=== PATIENT | female | born 1990 | race Hispanic/Latino ===

== ENCOUNTER 2017-08-26 13:00 | Inpatient (IN) | payer MEDICAID ==
[~2017-08-26] VITALS: Ht 175.3 cm; Wt 91.3 kg
[2017-08-26] MEDS ORDERED: SODIUM CHLORIDE 0.9% 1000ML 1,000 ML IV STA ×2 (13:05→15:58)
[2017-08-26] MEDS ORDERED: ONDANSETRON HCL INJ 2 MG/ML VIAL IV STA (13:05)
[2017-08-26] MEDS ORDERED: MORPHINE SULFATE INJ 4 MG/ML INJ IV STA (13:05)
[2017-08-26] MEDS ORDERED: MORPHINE SULFATE 2 MG/ML SYR ONE (13:25)
[2017-08-26 13:38] LABS: CLARITY,URINE HAZY (CLEAR); COLOR,URINE YELLOW (YELLOW)
[2017-08-26 13:39] LABS: BILIRUBIN,URINE NEGATIVE (NEGATIVE); KETONES,URINE NEGATIVE (NEGATIVE); LEUKOCYTE ESTERASE ,URINE NEGATIVE (NEGATIVE); NITRITE,URINE NEGATIVE (NEGATIVE); PROTEIN,URINE DIPSTICK TRACE (NEGATIVE); URINE UROBILINOGEN 1 mg/dL (0.2 - 1)
[2017-08-26 13:49] LABS: PREGNANCY TEST, URINE NEGATIVE (NEGATIVE)
[2017-08-26 13:56] LABS: BASOPHILS % 0.3 % (0.0-1.0); EOSINOPHILS % 0.3 % (0.0-6.0); HEMATOCRIT 40.7 % (34.2-44.1); LYMPHOCYTES # (AUTO) 1.1 (1.0-3.2); MEAN CORPUSCULAR HEMOGLOBIN 28.4 pg (28-32); MEAN CORPUSCULAR HGB CONC 34.4 g/dL (31-35); MEAN CORPUSCULAR VOLUME 82.6 fL (81-99); MONOCYTES # (AUTO) 0.5 (0.2-0.8); MONOCYTES % 5.3 % (4.4-11.3); NEUTROPHILS # (AUTO) 7.4 (2.1-6.9); PLATELET COUNT 261 x10e3/uL (140-360); RED BLOOD COUNT 4.93 x10e6/uL (3.6-5.1)
[2017-08-26 13:58] LABS: BACTERIA,URINE MANY /HPF; EPITHELIAL CELLS,URINE MANY /LPF; RBC,URINE 0-5 /HPF (0-5); WBC,URINE (MAN) 0-5 /HPF (0-5)
[2017-08-26] MEDS ORDERED: KETOROLAC TROMETHAMINE 30 MG/ML VIAL IV STA (14:02)
[2017-08-26 14:19] LABS: ALANINE AMINOTRANSFERASE 582 IU/L (0-55); ALBUMIN 4.5 g/dL (3.5-5.0); ALBUMIN/GLOBULIN RATIO 1.4 (0.8-2.0); ALKALINE PHOSPHATASE 115 IU/L (40-150); ANION GAP 14.4 mmol/L (8-16); BLOOD UREA NITROGEN 11 mg/dL (7-26); BUN/CREATININE RATIO 13 (6-25); CALCIUM 9.5 mg/dL (8.4-10.2); CARBON DIOXIDE 22 mmol/L (22-29); CHLORIDE 105 mmol/L (98-107); CREATININE, SERUM 0.83 mg/dL (0.57-1.11); EST GLOMERULAR FILTRATION RATE > 60 ML/MIN (60-); GLUCOSE 122 mg/dL (74-118); POTASSIUM 3.4 mmol/L (3.5-5.1); SODIUM 138 mmol/L (136-145)
[2017-08-26] MEDS ORDERED: HYDROMORPHONE 1MG/1ML INJ IV ONE (14:30)
--- NOTE | 2017-08-26 14:51 | Diagnostic Imaging Report ---
EXAM: CT Abdomen and Pelvis WITHOUT contrast INDICATION: Stomach and back pain. Kidney stone. COMPARISON: None. TECHNIQUE: Abdomen and pelvis were scanned utilizing a multidetector helical scanner from the lung base to the pubic symphysis without administration of IV contrast. Absence of intravenous contrast decreases sensitivity for detection of focal lesions and vascular pathology. Coronal and sagittal reformations were obtained. Routine protocol was performed. IV CONTRAST: None. ORAL CONTRAST: Water RADIATION DOSE: Total DLP: 542.61 mGy*cm Estimated effective dose: (DLP x 0.015 x size factor) mSv COMPLICATIONS: None FINDINGS: LINES and TUBES: None. LOWER THORAX: Unremarkable HEPATOBILIARY: No focal hepatic lesions. No biliary ductal dilation. GALLBLADDER: Single small calculus within the gallbladder lumen. No wall thickening. SPLEEN: No splenomegaly. PANCREAS: No focal masses or ductal dilatation. ADRENALS: No adrenal nodules KIDNEYS/URETERS: No hydronephrosis. No cystic or solid mass lesions. No stones. GI TRACT: No abnormal distention, wall thickening, or evidence of bowel obstruction. Appendix is normal. PELVIC ORGANS/BLADDER: Intrauterine device present; it appears in adequate position within the endometrial cavity. LYMPH NODES: No lymphadenopathy. VESSELS: Unremarkable. PERITONEUM / RETROPERITONEUM: No free air or fluid. BONES: Unremarkable. SOFT TISSUES: Unremarkable. IMPRESSION: 1. No acute abdominal pelvic abnormality. 2. Mild cholelithiasis. No cholecystitis or biliary dilatation. Signed by: Dr. Abilio Ramsey M.D. on 08/26/2017 2:47 PM
[2017-08-26 14:59] LABS: LIPASE 19680 U/L (8-78)
[2017-08-26 15:23] LABS: BILIRUBIN,DIRECT 1.3 mg/dL (0.0-0.5)
[2017-08-26] MEDS: SODIUM CHLORIDE 0.9% 1000ML 1,000 ML IV SCH (15:34)
[2017-08-26] MEDS ORDERED: ONDANSETRON HCL INJ 2 MG/ML VIAL IV PRN (15:45)
[2017-08-26] MEDS ORDERED: HYDROMORPHONE 1MG/1ML INJ IV PRN (15:45)
--- NOTE | 2017-08-26 16:36 | Diagnostic Imaging Report ---
EXAM: Gallbladder ultrasound/Right Upper Quadrant Ultrasound INDICATION: Gallstones. Pain. COMPARISON: None. TECHNIQUE: Transverse and longitudinal images of the right upper abdomen were obtained. FINDINGS: Liver: Size: 14.7 cm in the right midclavicular line, normal Appearance: Increased echogenicity, smooth contour Mass: No focal masses Gallbladder: Stones/Sludge: None Wall: 0.2 cm Appearance: No wall thickening, pericholecystic fluid or hydrops. Sonographic Quinones's Sign: Negative Bile Ducts: Intrahepatic Ducts: No dilatation Extrahepatic Ducts: Common bile duct measures 0.2 cm, no dilatation Pancreas: Visualized portions of the pancreatic head, neck and proximal body are normal. Kidneys: Length: Right 11.5 cm Echogenicity: Normal Collecting System: No hydronephrosis Stone: None Cyst/Mass: None Vessels: Aorta: Visualized portions are normal Inferior Vena Cava: Visualized portions are normal Main Portal Vein: 0.7 cm, normal size with hepatopetal flow. Free Fluid: No ascites or pleural effusion IMPRESSION: Unremarkable right upper quadrant ultrasound. Please note however that CT examination performed on the same day demonstrated a single small gallbladder calculus. Signed by: Dr. Abilio Ramsey M.D. on 08/26/2017 4:32 PM
--- NOTE | 2017-08-26 17:38 | Diagnostic Imaging Report ---
Magnetic resonance cholangiopancreatography Clinical History: Acute pancreatitis. Comparison: Correlation with CT without contrast and gallbladder ultrasound performed on the same day. Technique: Multiplanar, multisequence MRCP was performed, with sequences including coronal turbo spin-echo T1-weighted scans, [facility]CP scans, coronal spin, [facility] MPR 2[facility], [facility] MRCP [place]. Discussion: LOWER THORAX: Unremarkable. HEPATOBILIARY: No focal hepatic lesions. No biliary ductal dilation. The common bile duct is normal in caliber without filling defects or stricture. GALLBLADDER: Single small gallbladder calculus. No wall thickening. SPLEEN: No splenomegaly. PANCREAS: No focal masses or ductal dilatation. ADRENALS: No adrenal nodules KIDNEYS/URETERS: Kidneys enhance symmetrically. No hydronephrosis. No cystic or solid mass lesions. No stones. GI TRACT: No abnormal distention, wall thickening, or evidence of bowel obstruction. Appendix is normal. LYMPH NODES: No lymphadenopathy. VESSELS: Unremarkable. PERITONEUM / RETROPERITONEUM: No free air or fluid. BONES: Unremarkable. SOFT TISSUES: Unremarkable. IMPRESSION: Tiny single gallbladder calculus. No evidence of cholecystitis, choledocholithiasis or acute pancreatitis within limitations of lack of contrast. Signed by: Dr. Abilio Ramsey M.D. on 08/26/2017 5:34 PM
[2017-08-26 17:53] VITALS: BP 141/85
[2017-08-26] MEDS: LACTATED RINGER'S 1,000 ML INJ SCH ×3 (18:00→22:49)
[2017-08-26] MEDS ORDERED: LIDOCAINE HCL 2% LOCAL INJ 5 ML SDV VIAL INJ ONE (18:11)
[2017-08-26] MEDS ORDERED: ONDANSETRON HCL INJ 2 MG/ML VIAL ONE (18:11)
[2017-08-26] MEDS ORDERED: ROCURONIUM BROMIDE 10 MG/ML 5ML VIAL ONE (18:11)
[2017-08-26] MEDS ORDERED: DEXAMETHASONE SOD PHOS INJ 4 MG/ML VIAL ONE (18:11)
[2017-08-26] MEDS ORDERED: PROPOFOL IV EMULSION 10 MG/ML 20 ML VIAL ONE (18:11)
[2017-08-26] MEDS ORDERED: SEVOFLURANE INHAL SOLN 250 ML PEN BTL ONE (18:11)
[2017-08-26] MEDS ORDERED: POTASSIUM CHLORIDE 20MEQ/100ML 200 ML IV ONE (18:30)
[2017-08-26 18:37] LABS: FERRITIN 239.81 ng/mL (4.63-204.00)
--- NOTE | 2017-08-26 19:45 | History and Physical ---
HISTORY OF PRESENT ILLNESS: A 27-year-old female with no past medical history who came here with abdominal pain. She was found to have acute pancreatitis secondary to gallstone pancreatitis. REVIEW OF SYSTEMS: CARDIOVASCULAR: No chest pain or palpitation. RESPIRATORY: No shortness of breath. No cough. GASTROINTESTINAL: She had nausea, vomiting and abdominal pain. Constipation. She denies melanotic stools. No blood in stools or vomiting blood. GENITOURINARY: No frequency or dysuria. ALLERGIES: NOT ALLERGIC TO ANY MEDICATION. SOCIAL HISTORY: She denies drinking or smoking or using recreational drugs. PAST MEDICAL HISTORY: Negative for any significant medical condition. PHYSICAL EXAMINATION: HEART: Shows regular rhythm. No murmur. No extra sounds. LUNGS: Clear bilaterally. ABDOMEN: Soft. Minimally tender in the epigastric and mid periumbilical area. EXTREMITIES: Show no evidence of cyanosis, edema or trauma. LABORATORY DATA: On the blood work we have a CBC white blood count 9.06, hemoglobin 14.0, hematocrit 40.7, platelet count 261,000. On the BMP sodium 138, potassium 3.4, chloride 105. CO2 22. Anion gap 14.4. BUN 11, creatinine 0.83. Glucose 122. Calcium 9.5. Total bilirubin 2.3. Direct bilirubin 1.3. AST 1132. ALT 582, alkaline phosphatase 115. Total protein 7.7. Albumin 4.5. Globulin 3.2. Lipase is 19,680 and test is negative. Urinalysis came back negative. We also had an MRCP which was done already. It showed tiny single gallbladder calculus, no evidence of cholecystitis, choledocholithiasis or acute pancreatitis with limitations of lack of contrast. We also have a CT of the abdomen and pelvis which showed no acute abdominal pelvic abnormalities, mild cholelithiasis and no cholecystitis or biliary dilatation. We had a gallbladder ultrasound which showed unremarkable right upper quadrant ultrasound. PLAN OF TREATMENT: NPO. IV fluids. Dilaudid as needed for pain. Going to repeat the CMP, lipase and amylase tomorrow and going to order also hepatitis profile, antinuclear antibodies, ceruloplasmin levels, antimitochondrial antibodies, iron, ferritin. Gastroenterology consult with Dr. Kunal Walker and surgical consult with Dr. Aramis Marhkam. I explained plan of treatment to the patient and the mother at the bedside and answered the questions. We are going to replete the potassium also with potassium 40 mEq p.o. one time and recheck labs in the morning. Job#: [id number] NICHOLAS
[2017-08-26 20:00] VITALS: BP 134/76
[2017-08-26] MEDS: MORPHINE SULFATE 2 MG/ML SYR IV PRN (21:25)
[2017-08-26 22:46] VITALS: BP 134/76
[2017-08-27] VITALS (7 sets, daily range): BP systolic 115–133; BP diastolic 62–83
[2017-08-27] MEDS: SODIUM CHLORIDE 0.9% 1000ML 1,000 ML IV SCH ×3 (01:34→19:18)
[2017-08-27] MEDS: LACTATED RINGER'S 1,000 ML INJ SCH ×2 (01:41→05:15)
[2017-08-27 06:53] LABS: BASOPHILS % 0.4 % (0.0-1.0); EOSINOPHILS # (AUTO) 0.1 (0.0-0.4); EOSINOPHILS % 1.6 % (0.0-6.0); HEMATOCRIT 35.1 % (34.2-44.1); LYMPHOCYTES # (AUTO) 1.9 (1.0-3.2); LYMPHOCYTES % 24.4 % (18.0-39.1); MEAN CORPUSCULAR HEMOGLOBIN 28.8 pg (28-32); MEAN CORPUSCULAR HGB CONC 34.2 g/dL (31-35); MEAN CORPUSCULAR VOLUME 84.2 fL (81-99); MONOCYTES # (AUTO) 0.4 (0.2-0.8); MONOCYTES % 5.2 % (4.4-11.3); NEUTROPHILS # (AUTO) 5.4 (2.1-6.9); NEUTROPHILS % 68.3 % (38.7-80.0); PLATELET COUNT 208 x10e3/uL (140-360); RED BLOOD COUNT 4.17 x10e6/uL (3.6-5.1); RED CELL DISTRIBUTION WIDTH 13.1 % (11.7-14.4)
[2017-08-27 07:12] LABS: ALANINE AMINOTRANSFERASE 413 IU/L (0-55); ALBUMIN 3.3 g/dL (3.5-5.0); ALBUMIN/GLOBULIN RATIO 1.4 (0.8-2.0); ALKALINE PHOSPHATASE 90 IU/L (40-150); ANION GAP 11.2 mmol/L (8-16); BLOOD UREA NITROGEN 6 mg/dL (7-26); BUN/CREATININE RATIO 9 (6-25); CALCIUM 8.8 mg/dL (8.4-10.2); CARBON DIOXIDE 23 mmol/L (22-29); CHLORIDE 108 mmol/L (98-107); CREATININE, SERUM 0.67 mg/dL (0.57-1.11); EST GLOMERULAR FILTRATION RATE > 60 ML/MIN (60-); GLUCOSE 75 mg/dL (74-118); POTASSIUM 4.2 mmol/L (3.5-5.1); SODIUM 138 mmol/L (136-145)
[2017-08-27] MEDS: MORPHINE SULFATE 2 MG/ML SYR IV PRN (13:41)
--- NOTE | 2017-08-27 18:28 | Progress Note ---
DATE: August 27, 2017 INTERNAL MEDICINE PROGRESS NOTE SUBJECTIVE: She is doing better. PHYSICAL EXAM HEART: Regular rhythm. Normal S1 S2 sounds. LUNGS: Clear bilaterally. ABDOMEN: Soft, nontender, not distended. No organomegaly. VITAL SIGNS: Blood pressure is 128/83, temperature 97.5, heart rate 77 per minute. Respiratory rate 16 per minute. Oxygen saturation 99%. On the BMP sodium 138, potassium 4.2, chloride 108, CO2 23, BUN 6, creatinine 0.67. Glucose 75. The CBC, white blood count 7.91, hemoglobin 12.0, hematocrit 35.1, platelet count 209,000. AST 299, ALT 413, total bilirubin 1.4, alkaline phosphatase 90, lipase 789. FINAL IMPRESSIONS 1. Gallstone pancreatitis. 2. Elevated liver function tests. PLAN OF TREATMENT: Continue n.p.o. status. Continue IV fluids. Continue monitoring lipase, amylase, and CMP, which I consulted Dr. Aramis Markham, surgeon, for the gallstones and Dr. Kunal Walker for gastroenterology because of elevated LFTs. Elevated LFTs workup is in progress also. Possible start liquid diet tomorrow depending on numbers. Job#: [id number]
[2017-08-28] VITALS (7 sets, daily range): BP systolic 120–142; BP diastolic 64–82
[2017-08-28] MEDS: SODIUM CHLORIDE 0.9% 1000ML 1,000 ML IV SCH (04:48)
[2017-08-28 06:48] LABS: BASOPHILS % 0.6 % (0.0-1.0); EOSINOPHILS # (AUTO) 0.1 (0.0-0.4); EOSINOPHILS % 1.6 % (0.0-6.0); HEMATOCRIT 37.2 % (34.2-44.1); HEMOGLOBIN 12.7 g/dL (12.0-16.0); LYMPHOCYTES # (AUTO) 1.5 (1.0-3.2); LYMPHOCYTES % 21.6 % (18.0-39.1); MEAN CORPUSCULAR HEMOGLOBIN 28.7 pg (28-32); MEAN CORPUSCULAR HGB CONC 34.1 g/dL (31-35); MEAN CORPUSCULAR VOLUME 84.2 fL (81-99); MONOCYTES # (AUTO) 0.4 (0.2-0.8); MONOCYTES % 5.2 % (4.4-11.3); NEUTROPHILS # (AUTO) 4.9 (2.1-6.9); NEUTROPHILS % 70.7 % (38.7-80.0); PLATELET COUNT 221 x10e3/uL (140-360); RED BLOOD COUNT 4.42 x10e6/uL (3.6-5.1); RED CELL DISTRIBUTION WIDTH 12.8 % (11.7-14.4)
[2017-08-28 07:05] LABS: ALANINE AMINOTRANSFERASE 299 IU/L (0-55); ALBUMIN 3.7 g/dL (3.5-5.0); ALBUMIN/GLOBULIN RATIO 1.2 (0.8-2.0); ALKALINE PHOSPHATASE 109 IU/L (40-150); ANION GAP 16.2 mmol/L (8-16); BLOOD UREA NITROGEN 9 mg/dL (7-26); BUN/CREATININE RATIO 13 (6-25); CARBON DIOXIDE 17 mmol/L (22-29); CHLORIDE 109 mmol/L (98-107); CREATININE, SERUM 0.69 mg/dL (0.57-1.11); EST GLOMERULAR FILTRATION RATE > 60 ML/MIN (60-); POTASSIUM 4.2 mmol/L (3.5-5.1); SODIUM 138 mmol/L (136-145)
[2017-08-28 07:07] LABS: GLUCOSE 56 mg/dL (74-118)
[2017-08-28] MEDS: DEXTROSE 5%/LACTATED RINGERS 1,000 ML IV SCH ×2 (08:02→16:05)
--- NOTE | 2017-08-28 17:03 | Progress Note ---
DATE: August 28, 2017 INTERNAL MEDICINE PROGRESS NOTE SUBJECTIVE: Patient is doing well. Liver function tests elevated. She is going to undergo cholecystectomy once the lipase is normal, which is normal right now. PHYSICAL EXAM: VITAL SIGNS: Blood pressure 133/ , temperature 98.3, heart rate 64 per minute, respiratory rate 16 per minute, oxygen saturation 100%. HEART: Shows regular rhythm. Normal S1 and S2 sounds. LUNGS: Clear bilaterally. ABDOMEN: Soft. No tenderness. No distention. On the BMP: Sodium 138, potassium 4.2, chloride 109, CO2 17, BUN 9, creatinine 0.69, glucose 56. On the CBC: White blood count 6.90, hemoglobin 12.7, hematocrit 37.2, platelet count 221,000. AST 29, ALT 299, total bilirubin 1.4, alkaline phosphatase 109. FINAL IMPRESSION: 1. Acute cholecystitis. 2. Elevated liver function tests. PLAN OF TREATMENT: NPO. IV fluids. We are going to do a CBC, CMP tomorrow. Lipase level tomorrow. Continue D5 Ringer's lactate 100 mL an hour. Zofran 4 mg IV q.4 h. as needed. Possible laparoscopic cholecystectomy soon by Dr. Markham. Dr. Kunal Walker is seeing her from the gastroenterology point of view. Elevated liver function tests workup is in progress. Job#: [id number] CHIKA
[2017-08-29] VITALS (8 sets, daily range): BP systolic 126–156; BP diastolic 70–95
[2017-08-29] MEDS: DEXTROSE 5%/LACTATED RINGERS 1,000 ML IV SCH ×3 (03:45→23:45)
[2017-08-29] MEDS ORDERED: MORPHINE SULFATE 2 MG/ML SYR IV PRN (06:30)
[2017-08-29 07:04] LABS: BASOPHILS % 0.6 % (0.0-1.0); EOSINOPHILS # (AUTO) 0.1 (0.0-0.4); EOSINOPHILS % 2.6 % (0.0-6.0); HEMATOCRIT 36.6 % (34.2-44.1); HEMOGLOBIN 12.7 g/dL (12.0-16.0); LYMPHOCYTES # (AUTO) 1.5 (1.0-3.2); MEAN CORPUSCULAR HEMOGLOBIN 28.7 pg (28-32); MEAN CORPUSCULAR HGB CONC 34.7 g/dL (31-35); MEAN CORPUSCULAR VOLUME 82.6 fL (81-99); MONOCYTES # (AUTO) 0.4 (0.2-0.8); MONOCYTES % 7.9 % (4.4-11.3); NEUTROPHILS # (AUTO) 3.3 (2.1-6.9); NEUTROPHILS % 60.7 % (38.7-80.0); PLATELET COUNT 224 x10e3/uL (140-360); RED BLOOD COUNT 4.43 x10e6/uL (3.6-5.1); RED CELL DISTRIBUTION WIDTH 12.7 % (11.7-14.4)
[2017-08-29 07:23] LABS: ALANINE AMINOTRANSFERASE 205 IU/L (0-55); ALBUMIN 3.7 g/dL (3.5-5.0); ALBUMIN/GLOBULIN RATIO 1.2 (0.8-2.0); ALKALINE PHOSPHATASE 96 IU/L (40-150); ANION GAP 12.9 mmol/L (8-16); BLOOD UREA NITROGEN 7 mg/dL (7-26); BUN/CREATININE RATIO 10 (6-25); CALCIUM 9.2 mg/dL (8.4-10.2); CARBON DIOXIDE 24 mmol/L (22-29); CHLORIDE 108 mmol/L (98-107); CREATININE, SERUM 0.73 mg/dL (0.57-1.11); EST GLOMERULAR FILTRATION RATE > 60 ML/MIN (60-); GLUCOSE 90 mg/dL (74-118); POTASSIUM 3.9 mmol/L (3.5-5.1); SODIUM 141 mmol/L (136-145)
[2017-08-29] MEDS ORDERED: IOPAMIDOL 610MG/1ML 300 MG/ML VIAL IV ONE (13:30)
[2017-08-29] MEDS ORDERED: BUPIVACAINE 0.25% 30ML SDV INJ ONE (13:30)
[2017-08-29] MEDS ORDERED: FENTANYL CITRATE/PF 100MCG/2 ML INJ ONE ×2 (15:23→16:51)
--- NOTE | 2017-08-29 15:38 | Operative Report ---
DATE OF PROCEDURE: August 29, 2017 PREOPERATIVE DIAGNOSIS: Cholecystitis, cholelithiasis and gallstone pancreatitis. POSTOPERATIVE DIAGNOSIS: Cholecystitis, cholelithiasis and gallstone pancreatitis. OPERATION PERFORMED: Laparoscopic cholecystectomy with intraoperative cholangiogram. ASSISTANTS: Dr. Jerald Markham and RADHA Lim. ANESTHESIA: General. COMPLICATIONS: None. ESTIMATED BLOOD LOSS: Minimal. DESCRIPTION OF PROCEDURE: With the patient lying in bed in the supine position under good general endotracheal anesthesia, the abdomen was prepped with Betadine solution and draped in the usual manner. A Veress needle was introduced into the umbilicus, and pneumoperitoneum was established without any difficulty. An 11-mm trocar was placed into the umbilicus, and a 10-mm video laparoscope was placed into the intraabdominal cavity. Under direct vision, three 5-mm trocars were placed in the right subcostal region. Video laparoscopy at this point revealed a somewhat thick, full, edematous gallbladder. The rest of the abdominal exploration was within normal limits. The peritoneum overlying the neck of the gallbladder was then opened, and the cystic duct was identified. Cystic duct was then circumferentially dissected away from the common duct, and a clip was placed at the neck of the gallbladder. A cholangiocath was then introduced into the cystic duct. Under fluoroscopy, half-strength dye was introduced into the biliary tree, and this showed free flow of dye into the duodenum and no common duct filling defects. The cystic duct cholangiocath was then removed. The cystic duct was doubly clipped and divided. Cystic artery was similarly doubly clipped and divided. The gallbladder was then slowly and carefully taken off the liver bed using the cautery scissors. Perfect hemostasis was ascertained. The gallbladder was then grasped through the umbilical port and removed without any difficulty. Video laparoscopy was then again carried out. The liver bed was found to be perfectly dry. All of the excess fluid was aspirated. The pneumoperitoneum was evacuated, and all the trocars were removed under direct vision. The midline fascia at the umbilicus was then closed with a [id number] of #0 Vicryl. All layers were infiltrated on the way out with solution of 1/4 percent Marcaine. Subcutaneous tissue was approximated with 3-0 Vicryl, and the skin was closed with subcuticular 5-0 Vicryl. Benzoin, Steri-Strips and Band-Aids were applied. The sponge, lap and needle count was correct. Patient tolerated the procedure well and returned to the recovery room in stable condition. Job#: [id number]
[2017-08-29] MEDS ORDERED: MIDAZOLAM HCL 2 MG/2 ML VIAL ONE (16:51)
--- NOTE | 2017-08-29 17:13 | Progress Note ---
DATE: August 29, 2017 INTERNAL MEDICINE PROGRESS NOTE SUBJECTIVE: Patient is status post cholecystectomy, complaining of abdominal pain. PHYSICAL EXAM: VITAL SIGNS: Blood pressure 143/92. Temperature 98.8. Heart rate 75 per minute. Respiratory rate 18 per minute. Oxygen saturation 98%. HEART: Shows regular rhythm. Normal S1 and S2 sounds. LUNGS: Clear bilaterally. ABDOMEN: Soft. EXTREMITIES: Show no evidence of cyanosis, edema or trauma. On the BMP: Sodium 141, potassium 3.9, chloride 108, CO2 24, BUN 7, creatinine 0.73, glucose 90. On the CBC: White blood count 5.42, hemoglobin 12.7, hematocrit 36.6, platelet count 294,000. FINAL IMPRESSION: 1. Acute gallstone pancreatitis. 2. Acute cholecystitis status post cholecystectomy. PLAN OF TREATMENT: Continue IV fluids. Continue Zofran 4 mg IV q.4 h. as needed. Morphine 4 mg IV q.4 h. CMP tomorrow. Job#: [id number] EV
[2017-08-29] MEDS: HYDROCODONE/APAP 7.5MG-325MG 1 EA TAB PO PRN ×2 (18:57→22:45)
[2017-08-30] VITALS: BP 127/78
[2017-08-30] MEDS: HYDROCODONE/APAP 7.5MG-325MG 1 EA TAB PO PRN ×2 (02:38→06:56)
[2017-08-30 04:00] VITALS: BP 122/66
[2017-08-30 06:59] LABS: ALANINE AMINOTRANSFERASE 162 IU/L (0-55); ALBUMIN 3.7 g/dL (3.5-5.0); ALBUMIN/GLOBULIN RATIO 1.1 (0.8-2.0); ALKALINE PHOSPHATASE 98 IU/L (40-150); ANION GAP 12.9 mmol/L (8-16); BLOOD UREA NITROGEN < 5 mg/dL (7-26); CALCIUM 9.5 mg/dL (8.4-10.2); CARBON DIOXIDE 26 mmol/L (22-29); CHLORIDE 107 mmol/L (98-107); CREATININE, SERUM 0.72 mg/dL (0.57-1.11); EST GLOMERULAR FILTRATION RATE > 60 ML/MIN (60-); GLUCOSE 130 mg/dL (74-118); POTASSIUM 3.9 mmol/L (3.5-5.1); SODIUM 142 mmol/L (136-145)
[2017-08-30 07:01] LABS: BUN/CREATININE RATIO 7 (6-25)
[2017-08-30 08:05] VITALS: BP 124/76
[2017-08-30] MEDS: DEXTROSE 5%/LACTATED RINGERS 1,000 ML IV SCH (08:44)
[2017-08-30 12:00] VITALS: BP 132/80
--- NOTE | 2017-08-30 19:09 | Discharge Summary ---
HISTORY OF PRESENT ILLNESS: A 27-year-old female with no past medical history who came here with abdominal pain. She was found to have gallstone pancreatitis. She was kept NPO with IV fluids and pain management. She underwent laparoscopic cholecystectomy by Dr. Aramis Markham. The liver function test improved significantly and the patient was discharged home. The abdomen is soft. Tender on the incision site, of course. No distension or visceromegaly. FINAL IMPRESSION: Acute gallstone pancreatitis status post cholecystectomy. PLAN OF TREATMENT: Continue current pain medication. Follow up with Dr. Aramis Markham as an outpatient. The patient was breast feeding. She was told not to breast feed while she is taking pain medication or antibiotics. JEAN IBARRA MD Job#: [id number] GH
--- NOTE | 2017-09-03 12:16 | Diagnostic Imaging Report ---
PROCEDURE: INTRAOPERATIVE CHOLANGIOGRAM COMPARISON: None. INDICATIONS: LAP ESTEBAN, CHOLANGIOGRAMS TECHNIQUE: Intraoperative cholangiogram was performed by . 13 abdominal spot radiographs from the procedure were made available for evaluation. Fluoroscopy time: 6 sec. Dose: 16 mGy FINDINGS:Free flow of dye into the duodenum and no common duct filling defects. IMPRESSION: 1. Intraoperative fluoroscopy provided during Laparoscopic cholecystectomy with cholangiogram as described above. Please refer to the operative report for full description. Dictated by: Óscar Damon M.D. on 09/03/2017 at 12:20 Electronically approved by: Óscar Damon M.D. on 09/03/2017 at 12:20
== END 2017-08-30 14:50 | disposition home or self-care (01) | DRG 418 ==
LOC: ER 13:00 → ERHOLD 15:34 → MED/SURG 17:21
PROVIDERS: ADMIT Internal Medicine; ATTEND Internal Medicine
PROC: 0FT44ZZ Resection of Gallbladder, Percutaneous Endoscopic Approach (ICD-10-PCS; principal; 2017-08-29 10:00)
DX: K85.10 Biliary acute pancreatitis without necrosis or infection (principal); K80.10 Calculus of gallbladder with chronic cholecystitis without obstruction
CPT/HCPCS: 36415; 74176; 74181; 74300; 76705; 80053; 81001; 81025; 82150; 82248; 82390; 82728; 82948; 83540; 83690; 84478; 84702; 85025; 86039; 86255; 87086; 88304; 99284; C1766; J1100; J1170; J1885; J2001; J2250; J2270; J2405; J3480; J7030; J7120